=== PATIENT | female | born 1970 | race Caucasian/White ===

== ENCOUNTER 2019-02-18 14:30 | Outpatient (RCR) | payer OTHER, MEDICAID, SELFPAY ==
--- NOTE | 2019-01-20 11:41 | ST.OPIE ---
Provider Information Visit Care Team Role Provider Type JORGE rFeedman Attending Provider Non-Staff Primary Care Provider Specialty: Medical Address: [address] [place] [address], [phone] Email: Speech-Language Pathology Initial Evaluation GEOMORPHOLOGY TEACHER Clinical Instructor Line Start: 01/19/19 11:51 Freq: Status: Active Protocol: Document 01/19/19 16:39 LNK (Rec: 01/19/19 16:39 LNK [id number]) Clinical Instructor Signature Clinical Instructor Clinical Instructor Yes: Sharon Tay, PhD , [facility]-GEOMORPHOLOGY TEACHER GEOMORPHOLOGY TEACHER Cognitive/Memory Evaluation Start: 01/19/19 11:51 Freq: Status: Active Protocol: Document 01/18/19 17:30 MG (Rec: 01/19/19 12:29 MG [id number]) Evaluation of Cognition Session Time Visit Start Time 14:30 Visit Stop Time 15:30 Total Visit Minutes 60 Visit Information Visit Number 1 Plan of Care Dates 01/18/19-03/20/19 Insurance Information [employer] Next Note Type Next Note Type Treatment Note Referral Referring Physician Dr. Harrison Reason for Referral Memory loss Evaluation Assessment Type Initial Evaluation Past Medical History Patient History Luna Jara, a 48-year -old female, was seen at [facility] for an evaluation of cognition due to memory difficulties. Information detailed below is provided by evaluation observations, chart review of report done by Dr. Draper on 07/2019, and pre-treatment interview. Luna reported that her memory difficulties began 5-6 years ago, but in the past year have gotten worse. Luna has diagnoses of POTS, CFS, and severe anxiety and depression. Some examples Luna gave in regard to her memory include leaving the stove on while cooking, leaving the house missing items of clothing, throwing out dirty laundry instead of washing it, and losing track of her thoughts while communicating with others. Luna currently lives at home with her service dog. Luna has caretakers that come to her home every day 4-5 times per day to assist her in carrying out ADL?s (e.g., cooking meals, washing clothes , driving her to appointments) . Luna does not often drive many places by herself due to her memory difficulties and not remembering where she is going. Luna did drive to the hospital by herself ( accompanied by her service animal) because she reported her caretakers did not show up when scheduled, but Luna did not want to miss the assessment appointment. In Dr. Draper?s summary of findings, he noted that Luna has severe attention/concentration problems. Luna has received speech therapy in the past. Luna reported that she did not like when the therapist brought up changing her living situation (i.e., living at home to living in assisted living) and they often had arguments every session. Luna said that she only had a limited amount of sessions, but attended every one. Some strategies Luna received from previous therapy include setting alarms, putting notes everywhere, maintaining a calendar, and meditation. Luna reported that she did not feel like these strategies have helped her. Luna reported she sees a counselor for treatment of her mental health. Luna mentioned that she would like to be able to read and write again as well as following her train of thought when talking . Hearing Hearing Level Normal Vision Comments Wore sunglasses due to light sensitivity [place] Language Language(s) Spoken in the Home [place] Educational Status Education Level BA in [place] Occupational Status Occupation Status Unemployed Previous Therapy Previous Speech-Language Therapy Yes Oral Motor Examination Oral Motor Exam Completed Yes Results Informal OME observed that Luna is WFL to accurately produce speech sounds. Louises speech was 100% intelligible in an unstructured conversation. Subjective Subjective Luna was on time to the evaluation accompanied by her service animal. Luna appeared mildly confused but greeted the student GEOMORPHOLOGY TEACHER and GEOMORPHOLOGY TEACHER warmly. She wore sunglasses the entire time due to light sensitivity and requested the student GEOMORPHOLOGY TEACHER and GEOMORPHOLOGY TEACHER talk quietly due to sound sensitivity. - Formal Assessment Standardized Test Cognitive Linguistic Quick Test (CLQT) Administration Complete Multiple Scores to Report Yes Results The CLQT assesses the areas of attention, memory, executive functioning, language, and visuospatial skills through various treatment tasks. The examinee is given verbal directions and information and then asked to follow certain procedures. Tasks include both written and verbal answers. The following are Luna's composite scores and ranking of severity: Attention: 172 --> Mild Memory: 98 --> Severe Executive Functionin --> Mild Language: 23 --> Moderate Visuospatial Skills: 76 --> Mild Luna's biggest areas of weakness noted were short term memory and word finding. Luna appeared to have a difficult time holding on to directions and follwoing through with some tasks correctly. On some tasks such as the symbol trials, Luna completed the task as asked. Others tasks, such as clock drawing and story retell, Luna needed a reminder of what was expected of her and did not retain much information. Luna appeared to have difficulty retaining directions and completed all steps; often asked for a repeat of the directions which the student GEOMORPHOLOGY TEACHER could not give due to test restrictios. This indicates deficits in both sequencing and short term memory. During rapid word naming tasks, Luna took frequent pauses to process what she needed to say. Luna appeared to forget restrictions on one task (i.e., do not name any /m / words that begin with a capitol m) and named 3 things (i.e., Milky Way, Mom, [place]). When speaking, Luna would often forget what she was talking about or a point she was trying to make. This demonstrates deficits in word finding, which showed to impede her expressive language in communicating with others. - Cognition Orientation Skill Level Mildly Impaired Attention Skill Level Mildly Impaired Problem Solving/Reasoning/Judgment Skill Level Mildly Impaired Divergent Naming Skill Level Moderately Impaired Category Naming/Identification Skill Level Moderately Impaired Sequencing Skill Level Mildly Impaired Clock Drawing Skill Level Moderately Impaired - Memory Short Term Memory Skill Level Severely Impaired Immediate Recall Skill Level Moderately Impaired Word Recall Skill Level Moderately Impaired Story Recall Skill Level Severely Impaired Long-Term Memory Skill Level Mildly Impaired - Findings Cognitive/Memory Impressions Luna displays deficits in short term memory and word finding, which impede on her ability to carry out ADLs such as remembering appointments, completing tasks, remembering what she read, etc. This affects her overall mood and ability to participate in enjoyable and/or necessary activities as well as put her at risk of emergencies. Luna would benefit from therapy to improve these skills such as utilizing new strategies to assist in memory recall. A portion of Lnua's deficits may be a direct factor relating to her many illnesses she suffers from that negatively impact her motivation and energy. Therapy is still warranted, but treatment should also keep in mind Luna's motivation level and how willing she is to carryover treatment strategies to her everyday life. Recommendations Recommendations At this time, it is recommemded that Luna attend to address her deficits in short term memory and word finding. Treatment should be 1 x per week addressing new strategies to assist in memory recall as well as utilizing outside sources (e.g., white board) for increased safety and ability to carry out ADL's with less assistance. Treatment Goals Short Term Goals Luna will practice and utilize strategies (e.g., journaling, white board in central location) both in and out of the treatment room and report high success in follow through of HEP. Luna will increase short term memory by recalling at least 4 activities completed during the week with 80% accuracy. Luna will report less frequent moments of word finding difficulty both in and out of treatment directly related to strategies learned in treatment (e.g., talking around a word). Utilities And Maintenance Supervisor Goals Luna will report improved memory recall of various things (e.g., appointments and important dates) directly related to the impementation of strategies learned in treatment. Luna will utilize strategies learned in treatment sessions and report a higher ability of completing tasks to improve follow through of ADLs. Total Time Full Evaluation Time 120
--- NOTE | 2019-01-20 11:42 | ST.OPPOC ---
Care Team Visit Care Team Role Provider Type JORGE Freedman Attending Provider Non-Staff Primary Care Provider Address: [address] [place] [address], [phone] Speech Pathology Plan of Care BACKUP ADMINISTRATIVE COORDINATOR Clinical Instructor Line Start: 01/19/19 11:51 Freq: Status: Active Protocol: Document 01/19/19 16:39 LNK (Rec: 01/19/19 16:39 LNK [id number]) Clinical Instructor Signature Clinical Instructor Clinical Instructor Yes: Sharon Tay, PhD , [facility]-BACKUP ADMINISTRATIVE COORDINATOR Speech Pathology Plan of Care Plan of Care Dates 01/18/19-03/20/19 Short Term Goals Luna will practice and utilize strategies ( e.g., journaling, white board in central location) both in and out of the treatment room and report high success in follow through of HEP . Luna will increase short term memory by recalling at least 4 activities completed during the week with 80% accuracy. Luna will report less frequent moments of word finding difficulty both in and out of treatment directly related to strategies learned in treatment (e.g., talking around a word). Sweeper Cleaner Industrial Goals Luna will report improved memory recall of various things (e.g., appointments and important dates) directly related to the implementation of strategies learned in treatment. Luna will utilize strategies learned in treatment sessions and report a higher ability of completing tasks to improve follow through of ADLs.
--- NOTE | 2019-01-25 17:21 | ST.OPTN ---
Care Team Visit Care Team Role Provider Type JORGE Freedman Attending Provider Non-Staff Primary Care Provider Address: [address] [place] [address], [phone] CUSTOMER RESOLUTION SPECIALIST Treatment Note CUSTOMER RESOLUTION SPECIALIST Clinical Instructor Line Start: 01/19/19 11:51 Freq: Status: Active Protocol: Document 01/25/19 17:02 LNK (Rec: 01/25/19 17:03 LNK [id number]) Clinical Instructor Signature Clinical Instructor Clinical Instructor Yes: Sharon Tay, PhD , [facility]-CUSTOMER RESOLUTION SPECIALIST CUSTOMER RESOLUTION SPECIALIST Treatment Note Start: 01/25/19 15:47 Freq: Status: Active Protocol: Document 01/25/19 15:48 MG (Rec: 01/25/19 16:12 MG [id number]) Speech Pathology Treatment Note Session Time Visit Start Time 13:35 Visit Stop Time 14:30 Total Visit Minutes 55 Visit Information Visit Number 09/19 Plan of Care Dates 01/18/19-03/07/19 Insurance Information [employer] Setting Treatment Setting Outpatient Care Visit Type Note Type Treatment Note Next Note Type Next Note Type Treatment Note General Information General Information Luna, a 48-year-old female, was seen at [facility] for a cognitive/ memory evaluation. Luna has CFS and POTS, along with other medical diagnoses that affect her daily living. Luna reports that she wishes to attend treatment to work on memory compensatory strategies to assist in carrying out ADL's. Subjective Identification Type Name Observations/Patient Presentation Luna arrived accompanied by a caregiver. Caregiver was present in the room for the session. Luna noted to be experiencing more symptoms today of her illnesses, such as more aversion to sound and light. Luna used a walker today to help her move. Patient Knowledge/Awareness of CUSTOMER RESOLUTION SPECIALIST Role Good in Treatment Objective Short Term Goals Luna will practice and utilize strategies (e.g., journaling, white board in central location) both in and out of the treatment room and report high success in follow through of HEP. Luna will increase short term memory by recalling at least 4 activities completed during the week with 80% accuracy. Luna will report less frequent moments of word finding difficulty both in and out of treatment directly related to strategies learned in treatment (e.g., talking around a word). Reports Analysis Manager Goals Luna will report improved memory recall of various things (e.g., appointments and important dates) directly related to the implementation of strategies learned in treatment. Luna will utilize strategies learned in treatment sessions and report a higher ability of completing tasks to improve follow through of ADLs. Treatment Activities Results of testing were discussed with Luna in detail for the majority of the session. Student CUSTOMER RESOLUTION SPECIALIST noted that Luna would chime in throughout results to talk about something she remembered or a point she wanted to make , however Luna would then forget about what she was talking about and lose her ability to finish her thought. Student CUSTOMER RESOLUTION SPECIALIST gathered more information about Luna and brainstormed strategies to try with her. Strategies talked about include the following: tactile alarms ( vibration vs sound), word finding/crossword puzzle activities to improve word finding and reading/writing skills, strategies to increase safety (e.g., keeping chair in kitchen to remind her the oven is on), communication hub center to refer to when she is confused or forgets what she is doing, medication arrangement, and journaling. Next session, student CUSTOMER RESOLUTION SPECIALIST will implement and discuss strategies with Luna (e.g ., new way of taking medications). Assessment Patient Response to Treatment Good Rehab Potential Good Impairments Identified ADLs Attention Cognitive-Linguistic Skills Memory - Short Term Memory - Working Problem Solving Other Reviewed with Patient Goals Home Exercise Program Patient/Caregiver Understanding Good Plan Amount of Therapy Recommended 1-2 Months Frequency of Treatment Once a Week Length of Session 45 Minutes Therapeutic Contents Cognitive-Linguistic Training Home Exercise Program Information Processing Other Provided Patient/Caregiver Instruction Home Exercise Program Plan of Care Questions/Concerns Therapy Recommendations Continue with Current Program
--- NOTE | 2019-02-04 17:55 | ST.OPTN ---
Care Team Visit Care Team Role Provider Type JORGE Freedman Attending Provider Non-Staff Primary Care Provider Address: [address] [place] [address], [phone] HISTORICAL MANUSCRIPTS CURATOR Treatment Note HISTORICAL MANUSCRIPTS CURATOR Clinical Instructor Line Start: 01/19/19 11:51 Freq: Status: Active Protocol: Document 02/04/19 17:42 LNK (Rec: 02/04/19 17:42 LNK [id number]) Clinical Instructor Signature Clinical Instructor Clinical Instructor Yes: Sharon Tay, PhD , [facility]-HISTORICAL MANUSCRIPTS CURATOR HISTORICAL MANUSCRIPTS CURATOR Treatment Note Start: 01/25/19 15:47 Freq: Status: Active Protocol: Document 02/04/19 17:22 MG (Rec: 02/04/19 17:33 MG [email or web address]) Speech Pathology Treatment Note Session Time Visit Start Time 14:40 Visit Stop Time 15:30 Total Visit Minutes 50 Visit Information Visit Number 10/20 Plan of Care Dates 01/18/19-03/07/19 Insurance Information [employer] Setting Treatment Setting Outpatient Care Visit Type Note Type Treatment Note Next Note Type Next Note Type Treatment Note General Information General Information Luna, a 48-year-old female, was seen at [facility] for a cognitive/ memory evaluation. Luna has CFS and POTS, along with other medical diagnoses that affect her daily living. Luna reports that she wishes to attend treatment to work on memory compensatory strategies to assist in carrying out ADL's. Subjective Identification Type Name Observations/Patient Presentation Luna arrived accompanied by a caregiver. Luna called in advance to let student HISTORICAL MANUSCRIPTS CURATOR know that she would be late. Caregiver was not present in the room for the session. Rehab Expectation/Goals: Patient Goals Read and remember what was read, safety of self at home, medication control Patient Knowledge/Awareness of HISTORICAL MANUSCRIPTS CURATOR Role Good in Treatment Patient/Caregiver Compliance with Home Good Exercise Program Objective Short Term Goals Luna will practice and utilize strategies (e.g., journaling, white board in central location) both in and out of the treatment room and report high success in follow through of HEP. Luna will increase short term memory by recalling at least 4 activities completed during the week with 80% accuracy. Luna will report less frequent moments of word finding difficulty both in and out of treatment directly related to strategies learned in treatment (e.g., talking around a word). Shirt Turner Goals Luna will report improved memory recall of various things (e.g., appointments and important dates) directly related to the implementation of strategies learned in treatment. Luna will utilize strategies learned in treatment sessions and report a higher ability of completing tasks to improve follow through of ADLs. Treatment Activities Student HISTORICAL MANUSCRIPTS CURATOR noted that Luna did a better job at self-monitoring her amount of speaking time. However, there were still moments where she would continually talk until she forget what she was saying . Student HISTORICAL MANUSCRIPTS CURATOR went through a reading and memory task with Luna in order to help her reading comprehension and memory skills. Luna was asked to read a short paragraph and answer questions about it without access to it after reading it once. Luna read 3 short stories . Luna was able to only recall 2 details from what she read and used compensatory strategies (e.g., going to see ice skaters in [place] in the winter time) in order to answer questions. When Luna could read through multiple times and allowed to have access to the passage, she would get the 100% of the questions right. Luna has compensatory strategies she uses already (e.g., reading one sentence at a time) that appear to benefit her. Student HISTORICAL MANUSCRIPTS CURATOR and Luna discussed how to alleviate her ability to take the correct medication when. Student HISTORICAL MANUSCRIPTS CURATOR sent Luna home with a HEP of reading, word retrieval strategies to try, and strategies to help her take her medication at the appropriate time (i.e., take medication, then check it off) . Assessment Patient Response to Treatment Good Rehab Potential Good Impairments Identified ADLs Attention Cognitive-Linguistic Skills Memory - Short Term Memory - Working Problem Solving Other Reviewed with Patient Goals Home Exercise Program Patient/Caregiver Understanding Good Plan Amount of Therapy Recommended 1-2 Months Frequency of Treatment Once a Week Length of Session 45 Minutes Therapeutic Contents Cognitive-Linguistic Training Home Exercise Program Information Processing Other Provided Patient/Caregiver Instruction Home Exercise Program Plan of Care Questions/Concerns Therapy Recommendations Continue with Current Program
--- NOTE | 2019-02-11 18:03 | ST.OPTN ---
Care Team Visit Care Team Role Provider Type JORGE Freedman Attending Provider Non-Staff Primary Care Provider Address: [address] [place] [address], [phone] DIRECT MARKETING MANAGER Treatment Note DIRECT MARKETING MANAGER Clinical Instructor Line Start: 01/19/19 11:51 Freq: Status: Active Protocol: Document 02/11/19 17:54 LNK (Rec: 02/11/19 17:54 LNK [id number]) Clinical Instructor Signature Clinical Instructor Clinical Instructor Yes: Sharon Tay, PhD , [facility] [place] [place]-DIRECT MARKETING MANAGER DIRECT MARKETING MANAGER Treatment Note Start: 01/25/19 15:47 Freq: Status: Active Protocol: Document 02/11/19 15:47 MG (Rec: 02/11/19 15:57 MG [id number]) Speech Pathology Treatment Note Session Time Visit Start Time 14:35 Visit Stop Time 15:20 Total Visit Minutes 45 Visit Information Visit Number 11/17 Plan of Care Dates 01/18/19-03/07/19 Insurance Information [employer] Setting Treatment Setting Outpatient Care Visit Type Note Type Treatment Note Next Note Type Next Note Type Treatment Note General Information General Information Luna, a 48-year-old female, was seen at [facility] for a cognitive/ memory evaluation. Luna has CFS and POTS, along with other medical diagnoses that affect her daily living. Luna reports that she wishes to attend treatment to work on memory compensatory strategies to assist in carrying out ADL's. Subjective Identification Type Name Observations/Patient Presentation Luna arrived accompanied by a caregiver. Luna was in a wheelchair and reported to be very tired. Caregiver was not present in the room for the session. Rehab Expectation/Goals: Patient Goals Read and remember what was read, safety of self at home, medication control Patient Knowledge/Awareness of DIRECT MARKETING MANAGER Role Good in Treatment Patient/Caregiver Compliance with Home Good Exercise Program Objective Short Term Goals Luna will practice and utilize strategies (e.g., journaling, white board in central location) both in and out of the treatment room and report high success in follow through of HEP. Luna will increase short term memory by recalling at least 4 activities completed during the week with 80% accuracy. Luna will report less frequent moments of word finding difficulty both in and out of treatment directly related to strategies learned in treatment (e.g., talking around a word). [facility] Goals Luna will report improved memory recall of various things (e.g., appointments and important dates) directly related to the impementation of strategies learned in treatment. Luna will utilize strategies learned in treatment sessions and report a higher ability of completing tasks to improve follow through of ADLs. Treatment Activities Luna was experiencing a lot of symptoms today related to her diagnoses. Luna reported to the student DIRECT MARKETING MANAGER that she did not recall their last session and did not know that she was at a ST appointment. Towards the end of the session, Luna found home practice exercises and paperwork from the previous session as well as her phone she thought she lost . Upon finding these items, Luna became emotional, saying she, doesn't like feeling this way. Student DIRECT MARKETING MANAGER walked Luna through Story Grammar Marker ( SGM) activity with a story she read last week. SGM is a program used to assist in story recall and comprehension . Luna filled out the sheet and noted that this could be something she sees herself working on in order to get back to reading. Luna got more information about the short story compared to other strategies. 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 HEP was provided to Luna and student DIRECT MARKETING MANAGER noted that to her caregiver to make sure it got out of her purse and was put in a safe location at her home. Assessment Patient Response to Treatment Good Rehab Potential Good Impairments Identified ADLs Attention Cognitive-Linguistic Skills Memory - Short Term Memory - Working Problem Solving Other Reviewed with Patient Goals Home Exercise Program Patient/Caregiver Understanding Good Plan Amount of Therapy Recommended 1-2 Months Frequency of Treatment Once a Week Length of Session 45 Minutes Therapeutic Contents Cognitive-Linguistic Training Home Exercise Program Information Processing Other Provided Patient/Caregiver Instruction Home Exercise Program Plan of Care Questions/Concerns Therapy Recommendations Continue with Current Program
--- NOTE | 2019-02-18 15:38 | ST.OPTN ---
Care Team Visit Care Team Role Provider Type JORGE Freedman Attending Provider Non-Staff Primary Care Provider Address: [address] [place] [address], [phone] SAMPLE TAKER OPERATOR Treatment Note SAMPLE TAKER OPERATOR Clinical Instructor Line Start: 01/19/19 11:51 Freq: Status: Active Protocol: Document 02/11/19 17:54 LNK (Rec: 02/11/19 17:54 LNK [id number]) Clinical Instructor Signature Clinical Instructor Clinical Instructor Yes: Sharon Tay, PhD , [facility]-SAMPLE TAKER OPERATOR SAMPLE TAKER OPERATOR Treatment Note Start: 01/25/19 15:47 Freq: Status: Active Protocol: Document 02/18/19 15:24 LNK (Rec: 02/18/19 15:37 LNK [email or web address]) Speech Pathology Treatment Note Session Time Visit Start Time 14:30 Visit Stop Time 15:25 Total Visit Minutes 55 Visit Information Visit Number 12/18 Plan of Care Dates 01/18/19-03/07/19 Insurance Information [employer] Setting Treatment Setting Outpatient Care Visit Type Note Type Treatment Note Next Note Type Next Note Type Treatment Note General Information General Information Luna, a 48-year-old female, was seen at [facility] for a cognitive/ memory evaluation. Luna has CFS and POTS, along with other medical diagnoses that affect her daily living. Luna reports that she wishes to attend treatment to work on memory compensatory strategies to assist in carrying out ADL's. Subjective Identification Type Name Observations/Patient Presentation Luna arrived accompanied by a caregiver. Luna was in a wheelchair and reported to be very tired. Caregiver was not present in the room for the session. Rehab Expectation/Goals: Patient Goals Read and remember what was read, safety of self at home, medication control Patient Knowledge/Awareness of SAMPLE TAKER OPERATOR Role Good in Treatment Patient/Caregiver Compliance with Home Good Exercise Program Objective Short Term Goals Luna will practice and utilize strategies (e.g., journaling, white board in central location) both in and out of the treatment room and report high success in follow through of HEP. Luna will increase short term memory by recalling at least 4 activities completed during the week with 80% accuracy. Luna will report less frequent moments of word finding difficulty both in and out of treatment directly related to strategies learned in treatment (e.g., talking around a word). Therapeutic Case Manager Goals Luna will report improved memory recall of various things (e.g., appointments and important dates) directly related to the implementation of strategies learned in treatment. Luna will utilize strategies learned in treatment sessions and report a higher ability of completing tasks to improve follow through of ADLs. Treatment Activities Luna reported that she did not recall their last session but did remember that she was working on getting back to her reading and writing. Working toward Luna increasing her independence and her ability to find her things in her home, we discussed helpful apps she can download and try. One is a system that cues the person regarding events, places, medication, etc. Another is a free program to engage in cognition games, especially memory games. We listed ADLs that she wants to be able to start and complete. She will make 3x5 cards listing these ADLs and bring cards back to therapy next visit to get laminated. HEP was provided to Luna and student SAMPLE TAKER OPERATOR noted that to her caregiver to make sure it got out of her purse and was put in a safe location at her home. Assessment Patient Response to Treatment Good Rehab Potential Good Impairments Identified ADLs Attention Cognitive-Linguistic Skills Memory - Short Term Memory - Working Problem Solving Other Reviewed with Patient Goals Home Exercise Program Patient/Caregiver Understanding Good Plan Amount of Therapy Recommended 1-2 Months Frequency of Treatment Once a Week Length of Session 45 Minutes Therapeutic Contents Cognitive-Linguistic Training Home Exercise Program Information Processing Other Provided Patient/Caregiver Instruction Home Exercise Program Plan of Care Questions/Concerns Therapy Recommendations Continue with Current Program
--- NOTE | 2019-03-29 17:58 | ST.IPTN ---
Care Team Visit Care Team Role Provider Type JORGE Freedman Attending Provider Non-Staff Primary Care Provider Address: [address] [place] [address], [phone] MEAT SOAKER Treatment Note MEAT SOAKER Clinical Instructor Line Start: 01/19/19 11:51 Freq: Status: Active Protocol: Document 02/11/19 17:54 LNK (Rec: 02/11/19 17:54 LNK [id number]) Clinical Instructor Signature Clinical Instructor Clinical Instructor Yes: Sharon Tay, PhD , [facility]-MEAT SOAKER MEAT SOAKER Treatment Note Start: 01/25/19 15:47 Freq: Status: Active Protocol: Document 03/29/19 17:55 LNK (Rec: 03/29/19 17:58 LNK [email or web address]) Speech Pathology Treatment Note Setting Treatment Setting Outpatient Care Visit Type Note Type Discharge Summary General Information General Information Luna, a 48-year-old female, was seen at [facility] for a cognitive/ memory evaluation. Luna has CFS and POTS, along with other medical diagnoses that affect her daily living. Luna reports that she wishes to attend treatment to work on memory compensatory strategies to assist in carrying out ADL's. Objective Short Term Goals Luna will practice and utilize strategies (e.g., journaling, white board in central location) both in and out of the treatment room and report high success in follow through of HEP. Luna will increase short term memory by recalling at least 4 activities completed during the week with 80% accuracy. Luna will report less frequent moments of word finding difficulty both in and out of treatment directly related to strategies learned in treatment (e.g., talking around a word). Skilled Nursing Goals Luna will report improved memory recall of various things (e.g., appointments and important dates) directly related to the impementation of strategies learned in treatment. Luna will utilize strategies learned in treatment sessions and report a higher ability of completing tasks to improve follow through of ADLs. Assessment Progress Towards Goals Delayed Progress Appropriate for Discharge Assessment of Overall Progress Unchanged Assessment of Improvement Pt was seen for 4 therapy sessions following her evaluation. She did not return to this clinic since her last appointment 02/18/19. Pt will b discharged from therapy at this time Reviewed with Patient Home Exercise Program Plan Amount of Therapy Recommended No Further Therapy Therapeutic Contents Cognitive-Linguistic Training Home Exercise Program Information Processing Other Therapy Recommendations Discharge from Speech Therapy
== END 2019-04-02 14:11 | disposition home or self-care (01) ==
LOC: SP 14:30
PROVIDERS: PCP Nurse Practitioner Family; Visit Provider Nurse Practitioner Family
DX: R41.3 Other amnesia (principal)
CPT/HCPCS: 92507; 96125

== ENCOUNTER 2020-07-04 13:30 | Outpatient (RCR) | payer OTHER, MEDICAID, SELFPAY ==
--- NOTE | 2020-05-25 17:41 | ST.OPIE ---
Visit Care Team Role Provider Type Don Herrera MD Primary Care Provider Non-Staff Specialty: Family Practice Address: [address] [place] [address], [id number] Email: Alexei Godfrey Attending Provider Non-Staff Referring Provider Specialty: Medical Address: [address] [facility] [address], [place], [address] Email: Speech-Language Pathology Initial Evaluation SKEIN WINDING OPERATOR Language Evaluation Start: 05/22/20 12:39 Freq: Status: Active Protocol: Document 05/22/20 12:39 RICHARD (Rec: 05/22/20 12:40 RICHARD [id number]) Language Evaluation Session Time Visit Start Time 12:40 Visit Stop Time 13:40 Total Visit Minutes 60 Visit Information Visit Number Initial Evaluation Plan of Care Dates 05/22/20 - 08/21/90 Insurance Information [employer] Next Note Type Next Note Type Treatment Note Referral Referring Physician Dr. Alexei Eric Reason for Referral Dementia Language Evaluation Assessment Type Criterion Referenced speech, language; cognitive communication screening Past Medical History Patient History The pt is a 50-yr-old female who, approximately 7.5 yrs ago , was ill with an upper respiratory infection which was followed by diagnoses of chronic fatigue and immune deficiency.Approximately 2 yrs ago she was diagnosed with dementia by Neurologist Dr. Beto Draper. She is also followed by Dr. Craig, an infectious disease doctor at [facility] in [place], as well as by Ophthalmology and an Medicine Assistant in [place], [place]. The pt reports that she gets brain inflammation, which seems to worsen the more active she is and which results in significant decline in cognitive function. She also reports significant sensory sensitivity, including visual, auditory, and tactile . She expressed difficulty holding her train of thought as she speaks, memory deficits (e.g., immediately forgets thoughts, tasks, even desires such as being thirsty, etc.), and tracking passage of time. She reported difficulty recalling words and content of things she has read. These are particularly disappointing to the pt as she has prided herself in her vocabulary and has always been an avid reader and debater. The pt currently uses external alarms, notes, etc., to attempt to recall important information but stated they are not helpful. She lives alone with her dog and has caregivers who she also stated are not very helpful. Hearing Hearing Level Impaired Auditory History Acute sensitivity to sound Vision Vision Status Impaired Comments Dyslexia type experiences; Acute sensitivity to light [place] Language Language(s) Spoken in the Home [place] Educational Status Education Level B.A. Occupational Status Occupation Status Unemployed d/t illness Previous Therapy Previous Speech-Language Therapy Yes History of Therapy At this clinic ~2-3 yrs ago Oral Motor Examination Oral Motor Exam Completed No Subjective Subjective The pt arrived on time and provided case history. She self-ambulated with use of 4WW . She was wearing sunglasses throughout the session to minimize light sensitivity. Lights in the treatment room were dimmed, for which she expressed appreciation. She requested the SKEIN WINDING OPERATOR speak in a quiet voice, which was done with one reminder from the pt. The pt expressed interest in vision therapy and to be referred to a more local Medicine Assistant, preferably in [place]. - Informal Assessment Receptive Language Normal WFL for simple conversation. Needs further assessment. Expressive Language Normal No: Word finding difficulties Articulation Normal Yes Cognition Normal No: SLUMS: 03/07 Assessment Findings Speech: WNL; Pt was 100% intelligible Expressive Language: Syntax and word usage WNL. In conversation, the pt frequently exhibited difficulties with word recall and topic maintenance, requiring redirection and likely reflecting memory/ attention deficits that interfere with expressive communication. Written expression was not tested; requires assessment. Receptive Language: Auditory comprehension WNL for simple, egocentric conversation and following simple instructions. Needs further assessment to determine ability levels and deficits with communication of greater length and complexity . Reading comprehension was not tested; requires assessment. Cognitive Communication: Administered SLUMS screening assessment. The pt scored 6/30 points, which is consistent with dementia. She was unable to recall day of week and year . She immediately recalled list of 5 objects but was unable to recall any after a delay. Unable to make simple addition and subtraction calculations. Able to recite 2 -digit number span in reverse; Given 649, the pt recited [id number]. The pt azucena a clock with numbers placed and oriented appropriately, time originally set to 10:50 and self-corrected to 11:10; hands originated from center and were equal in length. The pt correctly placed an X in a triangle and identified largest of 3 objects. Given a short story followed by questions, both presented orally, the pt was unable to answer questions. Independently, she recalled 2 details of the story. Throughout the evaluation, the pt exhibited sensitivity (i.e ., jumping as if frightened) to environmental sounds in the adjacent room. Recommendations The pt presents with oral expressive and cognitive communication deficits that impact her ability to track/ recall functional information necessary to perform ADLs and increase her dependence on others. Vision deficits decrease her ability to read and, therefore, participate in hobbies. Further assessment is required to determine severity levels and deficits in other areas such as reading and writing. Skilled intervention is medically necessary to further evaluate the pt's skills and guide POC. Recommend the pt be referred to a local Plastic Press Operator (pt 's preference is [place]) for consultation if she may be a good candidate for vision therapy. Formal Assessment Standardized Test To be completed at next session. - Receptive Language - Expressive Language - Recommendations Recommendations Skilled intervention targeting expressive, receptive, and cognitive communication skills , 1x/wk for 12 wks. Treatment Goals Short Term Goals 1. The pt will demonstrate understanding of word recall strategies by using them in structured tasks with 80% accuracy to increase her expressive communication skills for functional communication tasks. 2. Under SKEIN WINDING OPERATOR guidance, the pt will track length of time required to complete structured tasks to increase her awareness of passage of time. 3. Under SKEIN WINDING OPERATOR guidance and given start times, the pt will complete familiar structured tasks and report estimated end times within 3-minute accuracy in 60% of opportunities to increase her ability to track the passage of time in order to complete ADLs and increase independence . 4. The pt will participate in establishment of external memory tools in her functional environment to increase ability to meet responsibilities and increase/ maintain independence. Horticulture Supervisor Goals 1. The pt will demonstrate independent use of word recall strategies to improve expressive language skills necessary for functional communication tasks. 2. During treatment sessions, the pt will express estimated passage of time within 5- minute accuracy in 70% of opportunities to increase her ability to track time necessary for completing ADLs and communicating with others about daily activities. 3. Using external memory tools as needed, the pt will report ability to recall functional information in at least 60% of opportunities, as measured by pt report and clinician judgment, in order to fulfill responsibilities and participate in ADLs.
--- NOTE | 2020-06-01 15:12 | ST.OPTN ---
Visit Care Team Role Provider Type Don Herrera MD Primary Care Provider Non-Staff Address: [address] [place] [address], [phone] Alexei Godfrey Attending Provider Non-Staff [facility]erring Provider [facility] [address] [place] [address], [id number] PHYSICIAN OFFICE ASSISTANT Treatment Note PHYSICIAN OFFICE ASSISTANT Treatment Note Start: 05/22/20 12:39 Freq: Status: Active Protocol: Document 05/29/20 13:25 RICHARD (Rec: 05/29/20 13:25 RICHARD [email or web address]) Speech Pathology Treatment Note Session Time Visit Start Date 05/29/20 Visit Start Time 12:45 Visit Stop Date 05/29/20 Visit Stop Time 13:20 Total Visit Minutes 35 Visit Information Visit Number 1 Plan of Care Dates 05/22/20 - 08/21/90 Insurance Information [employer] Setting Treatment Setting Outpatient Care Visit Type Note Type Treatment Note Next Note Type Next Note Type Treatment Note General Information General Information The pt is a 50-yr-old female who, approximately 7.5 yrs ago , was ill with an upper respiratory infection which was followed by diagnoses of chronic fatigue and immune deficiency.Approximately 2 yrs ago she was diagnosed with dementia by Neurologist Dr. Beto Draper. She is also followed by Dr. Craig, an infectious disease doctor at [facility] in [place], as well as by Ophthalmology and an Economic History Teacher in [place], [place]. The pt reports that she gets brain inflammation, which seems to worsen the more active she is and which results in significant decline in cognitive function. She also reports significant sensory sensitivity, including visual, auditory, and tactile . She expressed difficulty holding her train of thought as she speaks, memory deficits (e.g., immediately forgets thoughts, tasks, even desires such as being thirsty, etc.), and tracking passage of time. She reported difficulty recalling words and content of things she has read. These are particularly disappointing to the pt as she has prided herself in her vocabulary and has always been an avid reader and debater. The pt currently uses external alarms, notes, etc., to attempt to recall important information but stated they are not helpful. She lives alone with her dog and has caregivers who she also stated are not very helpful. Subjective Observations/Patient Presentation The pt arrived 15 minutes late . She called to let the clinic know she was late, and explained she originally thought she was going to [place], not [place], and then missed her turn into the clinic's parking lot. She stated such confusion happens frequently. Chief Complaint(s) Language,Cognitive Patient Knowledge/Awareness of PHYSICIAN OFFICE ASSISTANT Role Good in Treatment Objective Short Term Goals 1. The pt will demonstrate understanding of word recall strategies by using them in structured tasks with 80% accuracy to increase her expressive communication skills for functional communication tasks. 2. Under PHYSICIAN OFFICE ASSISTANT guidance, the pt will track length of time required to complete structured tasks to increase her awareness of passage of time. 3. Under PHYSICIAN OFFICE ASSISTANT guidance and given start times, the pt will complete familiar structured tasks and report estimated end times within 3-minute accuracy in 60% of opportunities to increase her ability to track the passage of time in order to complete ADLs and increase independence . 4. The pt will participate in establishment of external memory tools in her functional environment to increase ability to meet responsibilities and increase/ maintain independence. Fdc Goals 1. The pt will demonstrate independent use of word recall strategies to improve expressive language skills necessary for functional communication tasks. 2. During treatment sessions, the pt will express estimated passage of time within 5- minute accuracy in 70% of opportunities to increase her ability to track time necessary for completing ADLs and communicating with others about daily activities. 3. Using external memory tools as needed, the pt will report ability to recall functional information in at least 60% of opportunities, as measured by pt report and clinician judgment, in order to fulfill responsibilities and participate in ADLs. Treatment Activities Further assessment of language and cognitive linguistic skills made via administration of Cognitive Linguistic Quick Test (CLQT) with the following results: Composite Severity Ratin.8 , Mild Impairment Attention: 194/215, WNL Memory 127/185, Moderate impairment Executive Functions 33/40, WNL Language 29/37, WNL Visuospatial Skills 92/105, WNL Clock Drawing 12/13, WNL Skilled feedback was provided. Assessment results to be provided at next session. Assessment Rehab Potential Good Impairments Identified Attention,Cognitive-Linguistic Skills,Dementia,Memory - Short Term,Memory - Working, Reading Comprehension Assessment of Improvement The pt was participatory and very verbose throughout the assessment, explaining aloud what she was thinking and requiring redirection to the task.. Pt exhibited greatest challenge with story and design recall and design generation. In clock drawing, she originally set hands to 9: 55 and self-corrected to 1:57, exhibiting reversal of minute and hour hands. During identification of objects based on description task, she required repetition up to 4x of two items with descriptions greater than 3 words. The pt stated, I have a bunch of words swimming through my head . Areas of strength appeared in generative naming and maze completion. The pt did independently employ momory strategy (association) to recall designs, with limited success. Reviewed with Patient Goals,Progress Being Made,Home Exercise Program Patient/Caregiver Understanding Good Plan Amount of Therapy Recommended 3-4 Months Frequency of Treatment Once a Week Length of Session 45 Minutes Therapeutic Contents Client Education,Cognitive- Linguistic Training,Home Exercise Program,Information Processing,Reading Comprehension Provided Patient/Caregiver Instruction Home Exercise Program,Plan of Care,Questions/Concerns Therapy Recommendations Continue with Current Program
--- NOTE | 2020-06-20 16:58 | ST.OPTN ---
Visit Care Team Role Provider Type Don Herrera MD Primary Care Provider Non-Staff Address: [address] [place] [address], [id number] Alexei Godfrey Attending Provider Non-Staff Referring Provider Address: [facility] [address] [place] [address], [id number] SENIOR BUDGET ANALYST Treatment Note SENIOR BUDGET ANALYST Treatment Note Start: 05/22/20 12:39 Freq: Status: Active Protocol: Document 06/20/20 16:32 RICHARD (Rec: 06/20/20 16:58 RICHARD [email or web address]) Speech Pathology Treatment Note Session Time Visit Start Time 12:30 Visit Stop Time 13:15 Total Visit Minutes 45 Visit Information Visit Number 2 Plan of Care Dates 05/22/20 - 08/21/90 Insurance Information [employer] Setting Treatment Setting Outpatient Care Visit Type Note Type Treatment Note Next Note Type Next Note Type Treatment Note General Information General Information The pt is a 50-yr-old female who, approximately 7.5 yrs ago , was ill with an upper respiratory infection which was followed by diagnoses of chronic fatigue and immune deficiency.Approximately 2 yrs ago she was diagnosed with dementia by Neurologist Dr. Beto Draper. She is also followed by Dr. Craig, an infectious disease doctor at in [place], as well as by Ophthalmology and an Clinical Resource Nurse in [place], [place]. The pt reports that she gets brain inflammation, which seems to worsen the more active she is and which results in significant decline in cognitive function. She also reports significant sensory sensitivity, including visual, auditory, and tactile . She expressed difficulty holding her train of thought as she speaks, memory deficits (e.g., immediately forgets thoughts, tasks, even desires such as being thirsty, etc.), and tracking passage of time. She reported difficulty recalling words and content of things she has read. These are particularly disappointing to the pt as she has prided herself in her vocabulary and has always been an avid reader and debater. The pt currently uses external alarms, notes, etc., to attempt to recall important information but stated they are not helpful. She lives alone with her dog and has caregivers who she also stated are not very helpful. Subjective Observations/Patient Presentation Pt arrived on time mobilizing with 4WW. She stated her vertigo was strong today. Chief Complaint(s) Language,Cognitive Patient Knowledge/Awareness of SENIOR BUDGET ANALYST Role Good in Treatment Objective Short Term Goals 1. The pt will demonstrate understanding of word recall, attention, and memory strategies by using them in structured tasks with 80% accuracy to increase her expressive communication skills for functional communication tasks. 2. Under SENIOR BUDGET ANALYST guidance, the pt will track length of time required to complete structured tasks to increase her awareness of passage of time. 3. The pt will participate modification to her home environment (e.g., establishment of a memory/ communication center) to improve effectiveness of external memory tools and increase ability to meet responsibilities and increase/ maintain independence. Care Home Goals 1. The pt will demonstrate independent use of word recall , attention, and memory strategies to improve expressive language skills necessary for functional communication tasks. 2. During treatment sessions, the pt will express estimated passage of time within 3- minute accuracy in 70% of opportunities to increase her ability to track time necessary for completing ADLs and communicating with others about daily activities. 3. Using external memory tools as needed, the pt will report ability to recall functional information in at least 60% of opportunities, as measured by pt report and clinician judgment, in order to fulfill responsibilities and participate in ADLs. Treatment Activities Educated pt on results of assessment and collaborated to determine treatment goals. The pt was in agreement with goals established by SENIOR BUDGET ANALYST and, based on pt reports of challenges, with adding goals targeting attention and memory strategies. Goals are modified to reflect this discussion. Education was provided RE external memory tools, and the pt reported use of many notebooks and sticky notes, which are placed around her home. Although she attempts to put these and other items in designated places, they often are misplaced. Additionally the number of sticky notes placed around her house has become ineffective. They are just like wallpaper to me now. I don't even see them, she said. Recommended modification of the environment to eliminate clutter and increase organization for more effective use, including establishment of a center where many of these external tools can reside for easy access when needed. This will require training the pt to regularly interact with the center and other strategies to assist in remembering to use the tools. The pt was agreeable to this and provided a worksheet to assist her in identifying targets of environmental modifications. Over the course of the session , the pt exhibited significant WFDs x3 and lost her train of thought in conversation x2, requiring verbal cues to recall words and redirect to topics. Additionally, the pt informed the SENIOR BUDGET ANALYST three times that she was not tracking the clinician's speech in conversation, She stated, It' s too many words; My mind is thinking ahead and I'm distracted; and I'm so visually distracted by all the things on the [place] that I can't focus on what you're saying. The SENIOR BUDGET ANALYST rephrased her statements using more concise language, and the pt responded appropriately. Assessment Patient Response to Treatment Fair Rehab Potential Good Impairments Identified Attention,Cognitive-Linguistic Skills,Dementia,Memory - Short Term,Memory - Working, Reading Comprehension Assessment of Overall Progress Unchanged Assessment of Improvement The pt was participatory in discussions related to tx goals. She exhibited difficulty with attention to topics, word recall and tracking conversation, both expressively and receptively, impacted by visual and inner thought distractions and inability to follow conversation of moderate length presented at moderate speech rate. She was responsive to verbal prompts, redirection, and restatements in more concise language and with reduced rate of speech. Reviewed with Patient Goals,Progress Being Made,Home Exercise Program Patient/Caregiver Understanding Good Plan Amount of Therapy Recommended 3-4 Months Frequency of Treatment Once a Week Length of Session 45 Minutes Therapeutic Contents Client Education,Cognitive- Linguistic Training,Home Exercise Program,Information Processing,Reading Comprehension Provided Patient/Caregiver Instruction Home Exercise Program,Plan of Care,Questions/Concerns Therapy Recommendations Continue with Current Program
--- NOTE | 2020-07-04 17:21 | ST.OPTN ---
Visit Care Team Role Provider Type Don Herrera MD Primary Care Provider Non-Staff Address: [address] [place] [address], [id number] Alexei Godfrey Attending Provider Non-Staff Referring Provider Address: [facility] [address] [place] [address], [id number] ENGINEERING MATHEMATICIAN Treatment Note ENGINEERING MATHEMATICIAN Treatment Note Start: 05/22/20 12:39 Freq: Status: Active Protocol: Document 07/04/20 15:20 RICHARD (Rec: 07/04/20 15:28 RICHARD [id number]) Speech Pathology Treatment Note Session Time Visit Start Time 12:30 Visit Stop Time 13:15 Total Visit Minutes 45 Visit Information Visit Number 3 Plan of Care Dates 05/22/20 - 08/21/90 Insurance Information [employer] Setting Treatment Setting Outpatient Care Visit Type Note Type Treatment Note Next Note Type Next Note Type Treatment Note General Information General Information The pt is a 50-yr-old female who, approximately 7.5 yrs ago , was ill with an upper respiratory infection which was followed by diagnoses of chronic fatigue and immune deficiency.Approximately 2 yrs ago she was diagnosed with dementia by Neurologist Dr. Beto Draper. She is also followed by Dr. Craig, an infectious disease doctor at [facility] in [place], as well as by Ophthalmology and an [employer] in [place], [place]. The pt reports that she gets brain inflammation, which seems to worsen the more active she is and which results in significant decline in cognitive function. She also reports significant sensory sensitivity, including visual, auditory, and tactile . She expressed difficulty holding her train of thought as she speaks, memory deficits (e.g., immediately forgets thoughts, tasks, even desires such as being thirsty, etc.), and tracking passage of time. She reported difficulty recalling words and content of things she has read. These are particularly disappointing to the pt as she has prided herself in her vocabulary and has always been an avid reader and debater. The pt currently uses external alarms, notes, etc., to attempt to recall important information but stated they are not helpful. She lives alone with her dog and has caregivers who she also stated are not very helpful. Subjective Observations/Patient Presentation Pt arrived on time mobilizing with 4WW. She expressed being especially tired and having increased stress. Otherwise, no new complaints. The pt was seen in quiet tx room with overhead lights off, desk lamp on, to reduce sensory hypersensitivity. Chief Complaint(s) Language,Cognitive Patient Knowledge/Awareness of ENGINEERING MATHEMATICIAN Role Good in Treatment Objective Short Term Goals 1. The pt will demonstrate understanding of word recall, attention, and memory strategies by using them in structured tasks with 80% accuracy to increase her expressive communication skills for functional communication tasks. 2. Under ENGINEERING MATHEMATICIAN guidance, the pt will track length of time required to complete structured tasks to increase her awareness of passage of time. 3. The pt will participate modification to her home environment (e.g., establishment of a memory/ communication center) to improve effectiveness of external memory tools and increase ability to meet responsibilities and increase/ maintain independence. [facility] Goals 1. The pt will demonstrate independent use of word recall , attention, and memory strategies to improve expressive language skills necessary for functional communication tasks. 2. During treatment sessions, the pt will express estimated passage of time within 3- minute accuracy in 70% of opportunities to increase her ability to track time necessary for completing ADLs and communicating with others about daily activities. 3. Using external memory tools as needed, the pt will report ability to recall functional information in at least 60% of opportunities, as measured by pt report and clinician judgment, in order to fulfill responsibilities and participate in ADLs. Treatment Activities Continued training pt in external and internal memory strategies. Pt did not recall discussing creating a centralized information location in her home at last session, despite information provided in writing. Recommended and verbally rehearsed 4 steps: 1) Create a central information space; 2) Set alarms to remind self to check the space for reminders; 3) Go to the space and turn off alarm once you're there ( not before); and 4) Ask yourself, Is there anything I need to remember or do right now?. The pt did require topic of conversation and steps to be written in order to continuously recall topic of conversation. Rehearsed steps with prompts decreasing from max to min-mod; pt recited in sequence in response to questions or verbal prompts with increasing accuracy and independence. Assessment Patient Response to Treatment Fair Rehab Potential Good Impairments Identified Attention,Cognitive-Linguistic Skills,Dementia,Memory - Short Term,Memory - Working, Reading Comprehension Progress Towards Goals Slow Progress Assessment of Overall Progress Unchanged Assessment of Improvement The pt demonstrated improved recall of 4-step sequence with rehearsal. She continued to require verbal prompts throughout session and required written prompts to remain aware of conversation topics. Severe STM and working memory deficits persist. Reviewed with Patient Goals,Progress Being Made,Home Exercise Program Patient/Caregiver Understanding Good Plan Amount of Therapy Recommended 3-4 Months Frequency of Treatment Once a Week Length of Session 45 Minutes Therapeutic Contents Client Education,Cognitive- Linguistic Training,Home Exercise Program,Information Processing,Reading Comprehension Provided Patient/Caregiver Instruction Home Exercise Program,Plan of Care,Questions/Concerns Therapy Recommendations Continue with Current Program
--- NOTE | 2020-10-23 15:01 | ST.OPDS ---
Visit Care Team Role Provider Type Don Herrera MD Primary Care Provider Non-Staff Address: [address] [place] [address], [id number] Alexei Godfrey MD Attending Provider Non-Staff Referring Provider Address: [facility] Karlos [facility] [address], [place], [address] ASSESSMENT SPECIALIST Treatment Note ASSESSMENT SPECIALIST Treatment Note Start: 05/22/20 12:39 Freq: Status: Active Protocol: Document 10/23/20 14:58 RICHARD (Rec: 10/23/20 14:59 RICHARD [email or web address]) Speech Pathology Treatment Note Visit Information Plan of Care Dates 05/22/20 - 08/21/90 Insurance Information [employer] Setting Treatment Setting Outpatient Care Visit Type Note Type Discharge Summary General Information General Information The pt is a 50-yr-old female who, approximately 7.5 yrs ago , was ill with an upper respiratory infection which was followed by diagnoses of chronic fatigue and immune deficiency.Approximately 2 yrs ago she was diagnosed with dementia by Neurologist Dr. Beto Draper. She is also followed by Dr. Craig, an infectious disease doctor at [facility] in [place], as well as by Ophthalmology and an Neurology Professor in [place], [place]. The pt reports that she gets brain inflammation, which seems to worsen the more active she is and which results in significant decline in cognitive function. She also reports significant sensory sensitivity, including visual, auditory, and tactile . She expressed difficulty holding her train of thought as she speaks, memory deficits (e.g., immediately forgets thoughts, tasks, even desires such as being thirsty, etc.), and tracking passage of time. She reported difficulty recalling words and content of things she has read. These are particularly disappointing to the pt as she has prided herself in her vocabulary and has always been an avid reader and debater. The pt currently uses external alarms, notes, etc., to attempt to recall important information but stated they are not helpful. She lives alone with her dog and has caregivers who she also stated are not very helpful. Subjective Observations/Patient Presentation The pt was last seen 07/04/20 and has not returned for further therapy. She will be discharged at this time. Chief Complaint(s) Language,Cognitive Objective Short Term Goals 1. The pt will demonstrate understanding of word recall, attention, and memory strategies by using them in structured tasks with 80% accuracy to increase her expressive communication skills for functional communication tasks. 2. Under ASSESSMENT SPECIALIST guidance, the pt will track length of time required to complete structured tasks to increase her awareness of passage of time. 3. The pt will participate modification to her home environment (e.g., establishment of a memory/ communication center) to improve effectiveness of external memory tools and increase ability to meet responsibilities and increase/ maintain independence. Shelter Goals 1. The pt will demonstrate independent use of word recall , attention, and memory strategies to improve expressive language skills necessary for functional communication tasks. 2. During treatment sessions, the pt will express estimated passage of time within 3- minute accuracy in 70% of opportunities to increase her ability to track time necessary for completing ADLs and communicating with others about daily activities. 3. Using external memory tools as needed, the pt will report ability to recall functional information in at least 60% of opportunities, as measured by pt report and clinician judgment, in order to fulfill responsibilities and participate in ADLs. Assessment Impairments Identified Attention,Cognitive-Linguistic Skills,Dementia,Memory - Short Term,Memory - Working, Reading Comprehension Plan Therapy Recommendations Discharge from Speech Therapy
== END 2020-10-25 07:44 ==
LOC: SP 13:30
PROVIDERS: PCP Family Medicine; Referring Provider Internal Medicine; Visit Provider Internal Medicine
DX: F02.80 Dementia in other diseases classified elsewhere, unspecified severity, without behavioral disturbance, psychotic disturbance, mood disturbance, and anxiety (principal); R53.82 Chronic fatigue, unspecified
CPT/HCPCS: 92507; 92523; 97129; 97130